=== PATIENT | female | born 2000 | race Two or more races ===

== ENCOUNTER 2019-07-14 17:41 | Emergency (ER) | payer MEDICAID ==
[~2019-07-14] VITALS: Ht 154.9 cm; Wt 54.0 kg
[2019-07-14 17:50] VITALS: BP 118/74
[2019-07-14] MEDS ORDERED: cefTRIAXone SOD 1,000 MG VL IM ONE (18:45)
[2019-07-14] MEDS ORDERED: LIDOCAINE W/ EPINEPHRINE 2% INJ 20ML VIAL IJ ONE (18:45)
== END 2019-07-14 19:36 | disposition home or self-care (01) ==
LOC: ER 17:41 → EDBD 17:41 → ER 19:35
DX: S71.111A Laceration without foreign body, right thigh, initial encounter (principal); W26.0XXA Contact with knife, initial encounter; Y93.89 Activity, other specified; Y92.89 Other specified places as the place of occurrence of the external cause; Y99.8 Other external cause status
CPT/HCPCS: 12001; 96372; 99283; J0696